=== PATIENT | male | born 1980 | race Caucasian/White ===

== ENCOUNTER 2019-10-12 12:35 | Emergency (ER) | payer MEDICAID ==
[~2019-10-12] VITALS: Ht 170.2 cm; Wt 82.1 kg
[2019-10-12 12:39] VITALS: BP_SYST 121
--- NOTE | 2019-10-12 12:50 | NUR ---
ambulated to bed 12 with steady gait.
--- NOTE | 2019-10-12 12:54 | NUR ---
coming from home c/o generalized abdominal pain x 3 weeks. denies n/v/d. pain is 8/10 and nonradiating. states was seen in another hospital and given medication for the pain and no relief. abdomen is soft and nontender. reports one minimal bowel movement today. awaiting MSE. pmhx: denies nka
--- NOTE | 2019-10-12 13:12 | NUR ---
Pt to xray via wheelchair
--- NOTE | 2019-10-12 13:20 | NUR ---
Pt returned from xray via wheelchair
[2019-10-12 14:30] VITALS: BP 121/80
--- NOTE | 2019-10-12 14:30 | NUR ---
Patient discharged with v/s stable. Written and verbal after care instructions given and explained. Patient alert, oriented and verbalized understanding of instructions. Ambulatory with steady gait. All questions addressed prior to discharge. ID band removed. Patient advised to follow up with PMD. Rx of Mineral oil 30ml, and Miralax 17grams given. Patient educated on indication of medication including possible reaction and side effects. Opportunity to ask questions provided and answered.
== END 2019-10-12 14:30 | disposition home or self-care (01) ==
LOC: MED 12:35
DX: R10.9 Unspecified abdominal pain (principal); R03.0 Elevated blood-pressure reading, without diagnosis of hypertension
CPT/HCPCS: 74018; 99283